=== PATIENT | female | born 1985 | race American Indian/Alaskan Native ===

== ENCOUNTER 2020-01-04 11:23 | Emergency (ER) | payer BC, OTHER ==
[2020-01-04 11:31] VITALS: BP 139/77
[2020-01-04 12:08] LABS: Bilirubin,Urine NEG (Negative); Blood,Urine NEG (Negative); Color,Urine Yellow (Yellow); Protein,Urine <15 mg/dL mg/dL (Negative); Urobilinogen,Urine < 2.0 mg/dL (<2.0); WBC,Urine < 1.0 /HPF (0.0-6.0)
[2020-01-04 13:12] LABS: Hematocrit 34.6 % (30.3-42.9); Hemoglobin 11.5 gm/dl (10.1-14.3); Mean Corpuscular HGB Conc 33 % (30-34); Mean Corpuscular Volume 74 fl (79-97); Platelet Count 192 K/mm3 (140-440); Red Blood Count 4.65 M/mm3 (3.65-5.03)
[2020-01-04 13:29] LABS: BUN/Creatinine Ratio 12; Blood Urea Nitrogen 7 mg/dL (7-17); Calcium 9.1 mg/dL (8.4-10.2); Hemolysis Index 5
[2020-01-04] MEDS ORDERED: SODIUM CHLORIDE 0.9% 1000 ML 1,000 ML IV ONE (13:51)
--- NOTE | 2020-01-04 13:52 | Emergency Department Report ---
ED N/V/D HPI - General Chief complaint: Abdominal Pain Stated complaint: 7WKS /ABD PAIN Time Seen by Provider: 01/04/20 13:50 Source: patient Mode of arrival: Ambulatory Limitations: No Limitations - History of Present Illness Initial comments: Patient is a 34-year-old -[place] female who follows with [facility]. She comes in complaining of suprapubic pain. She states that when she saw her OB 2 days ago they checked her urine and told her they would call her. She has also had an ultrasound last Wednesday. She also has seen called [facility] ER for a UTI in the recent past and has completed a course of Keflex. This is the patient's fourth she has 3 living children and her last menstrual was 3-14. She has no vaginal bleeding or discharge. No fever or chills. She is ambulatory and arrives in the ER via private vehicle -: Gradual Quality: aching Consistency: constant Improves with: none Worsens with: none Associated Symptoms: denies other symptoms - Related Data Home Medications Medication Instructions Recorded Confirmed Last Taken Trazodone HCl [traZODone] 50 mg PO QHS 08/07/14 08/07/14 08/07/14 buPROPion [Wellbutrin] 75 mg PO DAILY 08/07/14 08/07/14 08/07/14 Previous Rx's Medication Instructions Recorded Last Taken Type Ondansetron [Zofran Odt] 4 mg PO Q8HR PRN #10 tab.rapdis 01/04/20 Unknown Rx Allergies Allergy/AdvReac Type Severity Reaction Status Date / Time No Known Allergies Allergy Verified 08/07/14 22:06 ED Review of Systems ROS: Stated complaint: 7WKS /ABD PAIN Other details as noted in HPI Comment: All other systems reviewed and negative ED Past Medical Hx - Past Medical History Previous Medical History?: Yes Hx Psychiatric Treatment: Yes (depression) Additional medical history: Patient describes what might be a renal cyst. Details unknown - Surgical History Past Surgical History?: Yes Additional Surgical History: ACL 2011, Uterine Embolization 2014, Anterior Cerv ical Disection and fusion 2015 - Family History Family history: no significant - Social History Smoking Status: Never Smoker Substance Use Type: None - Medications Home Medications: Home Medications Medication Instructions Recorded Confirmed Last Taken Type Trazodone HCl [traZODone] 50 mg PO QHS 08/07/14 08/07/14 08/07/14 History buPROPion [Wellbutrin] 75 mg PO DAILY 08/07/14 08/07/14 08/07/14 History Ondansetron [Zofran Odt] 4 mg PO Q8HR PRN #10 tab.rapdis 01/04/20 Unknown Rx ED Physical Exam - General Limitations: No Limitations General appearance: alert, in no apparent distress - Head Head exam: Present: atraumatic, normocephalic - Eye Eye exam: Present: normal appearance - ENT ENT exam: Present: mucous membranes moist - Neck Neck exam: Present: normal inspection - Respiratory Respiratory exam: Present: normal lung sounds bilaterally. Absent: respiratory distress - Cardiovascular Cardiovascular Exam: Present: regular rate, normal rhythm. Absent: systolic murmur, diastolic murmur, rubs, gallop - GI/Abdominal GI/Abdominal exam: Present: soft, normal bowel sounds - Extremities Exam Extremities exam: Present: normal inspection - Back Exam Back exam: Present: normal inspection - Neurological Exam Neurological exam: Present: alert, oriented X3 - Psychiatric Psychiatric exam: Present: normal affect, normal mood - Skin Skin exam: Present: warm, dry, intact, normal color. Absent: rash ED Course Vital Signs 01/04/20 11:27 Temperature 97.7 F Pulse Rate 68 Respiratory 18 Rate Blood Pressure 139/77 O2 Sat by Pulse 100 Oximetry ED Medical Decision Making - Lab Data Result diagrams: 01/04/20 12:44 01/04/20 12:44 - Medical Decision Making Labs 01/04/20 01/04/20 01/04/20 12:44 12:44 12:44 WBC 10.2 RBC 4.65 Hgb 11.5 Hct 34.6 MCV 74 L MCH 25 L MCHC 33 RDW 25.0 H Plt Count 192 Sodium 135 L Potassium 3.5 L Chloride 99.8 Carbon Dioxide 22 Anion Gap 17 BUN 7 Creatinine 0.6 L Estimated GFR > 60 BUN/Creatinine Ratio 12 Glucose 86 Calcium 9.1 HCG, Quant 78427 H Urine Color Urine Turbidity Urine pH Ur Specific [place] Urine Protein Urine Glucose (UA) Urine Ketones Urine Blood Urine Nitrite Urine Bilirubin Urine Urobilinogen Ur Leukocyte Esterase Urine WBC (Auto) Urine RBC (Auto) U Epithel Cells (Auto) Blood Type Ord Rhogam Gestat Weeks 01/04/20 01/04/20 12:44 Unknown WBC RBC Hgb Hct MCV MCH MCHC RDW Plt Count Sodium Potassium Chloride Carbon Dioxide Anion Gap BUN Creatinine Estimated GFR BUN/Creatinine Ratio Glucose Calcium HCG, Quant Urine Color Yellow Urine Turbidity Clear Urine pH 6.0 Ur Specific [place] 1.009 Urine Protein <15 mg/dl Urine Glucose (UA) Neg Urine Ketones Neg Urine Blood Neg Urine Nitrite Neg Urine Bilirubin Neg Urine Urobilinogen < 2.0 Ur Leukocyte Esterase Neg Urine WBC (Auto) < 1.0 Urine RBC (Auto) 1.0 U Epithel Cells (Auto) 2.0 Blood Type O POSITIVE Ord Rhogam Gestat Weeks Rh pos Vital Signs 01/04/20 11:27 Temperature 97.7 F Pulse Rate 68 Respiratory 18 Rate Blood Pressure 139/77 O2 Sat by Pulse 100 Oximetry Urine noted. hCG noted. Labs noted. Patient medicated with normal saline, Zofran and Tylenol. Patient denies vaginal bleeding or discharge. Patient has had an ultrasound and there is no ectopic . Patient has finished a course of Keflex and has seen her INSTALLATION AND REPAIR TECHNICIAN 2 days ago. They told her they would send her urine off and call her if she needed antibiotics. Her urine has no nitrites and no leukocytes today. Given that she is just completed a course of Keflex in early I am not inclined to give her a another course of antibiotics. Patient ambulatory and taking p.o. I have explained her that she needs to follow-up with her INSTALLATION AND REPAIR TECHNICIAN for her ongoing suprapubic discomfort. I explained to her that an early just taking antibiotics is not nunez given risk for congenital issues with the fetus. - Differential Diagnosis Rule out UTI Critical care attestation.: If time is entered above; I have spent that time in minutes in the direct care of this critically ill patient, excluding procedure time. ED Disposition Clinical Impression: Suprapubic pain Disposition: DC-01 TO HOME OR SELFCARE Is pt being admited?: No Does the pt Need Aspirin: No Condition: Stable Additional Instructions: Stay well-hydrated Diet as tolerated Tylenol only for pain Follow-up with INSTALLATION AND REPAIR TECHNICIAN Let them know that all of your tests today were normal Prescriptions: Ondansetron [Zofran Odt] 4 mg PO Q8HR PRN #10 tab.rapdis PRN Reason: Vomiting Time of Disposition: 15:16
[2020-01-04] MEDS ORDERED: ACETAMINOPHEN 500 MG TAB PO ONE (14:10)
[2020-01-04] MEDS ORDERED: ONDANSETRON 4 MG/2 ML INJ IV NR (15:00)
== END 2020-01-04 15:46 | disposition home or self-care (01) ==
LOC: ED 11:23
DX: O26.891 Other specified pregnancy related conditions, first trimester (principal); R10.2 Pelvic and perineal pain; Z3A.01 Less than 8 weeks gestation of pregnancy; Z79.899 Other long term (current) drug therapy; Z98.890 Other specified postprocedural states
CPT/HCPCS: 36415; 80048; 81001; 84702; 85027; 86900; 86901; 96374; 99283; J2405; J7030